=== PATIENT | male | born 1980 | race Caucasian/White ===

== ENCOUNTER 2020-08-01 08:40 | Emergency (ER) | payer OTHER, BC ==
[~2020-08-01] VITALS: Ht 177.8 cm; Wt 79.4 kg
--- OUTSIDE RECORDS SUMMARY | ~2020-08-01 | XMS | Encounter Summary ---
Demographics + + + | Address | [address] | | | [place] [address] | + + + | Home Phone | | + + + | Preferred Language | Unknown | + + + | Marital Status | | + + + | Moravian Affiliation | ADV | + + + | Race | White | + + + | Ethnic Group | Not or | + + + Author + + + | Author | [facility] | + + + | Organization | [facility] | + + + | Address | Unknown | + + + | Phone | Unavailable | + + + Support + + + + + | Name | Relationship | Address | Phone | + + + + + | Jigna Gutierrez | ECON | [address] | | | | | [place] | | | | | [address] | | + + + + + | Karmen All | ECON | [address] | | | | | [place] | | | | | [address] | | + + + + + Care Team Providers + +------+ + | Care Retail Field Supervisor Name | Role | Phone | + +------+ + | Juanito Edge MD | PCP | | + +------+ + Reason for Visit + +--------+ + | Reason | Onset | Comments | | | Date | | + +--------+ + | Telephone follow-up | 11/09/ | | | | 2012 | | + +--------+ + Encounter Details +--------+ + + + + | Date | Type | Department | Care Team | Description | +--------+ + + + + | 11/09/ | Telephone | [facility] | [facility] [address] | Telephone follow-up | | 2012 | IP | [facility] [address] | [facility] | | | | | [address] | [address] [place], [place] | | | | | Mailcode: [id number] | [id number] | | | | | [facility] | | | | | | [address] [place], | | | | | | [place] [address] | | | | | | [phone] | | | +--------+ + + + + Social History + + + +--------+------+ | Tobacco Use | Types | Packs/Day | Years | Date | | | | | Used | | + + + +--------+------+ | Current Every Day | Cigarettes | 1 | | | | Smoker | | | | | + + + +--------+------+ + +---+---+---+ | Smokeless Tobacco: | | | | | Never Used | | | | + +---+---+---+ + + +---------+ + | Alcohol Use | Drinks/Week | oz/Week | Comments | + + +---------+ + | Yes | 21 Cans of beer | 17.5 | Occasionally | + + +---------+ + + + + | Sex Assigned at | Date Recorded | | | | + + + | Not on file | | + + + documented as of this encounter Miscellaneous Notes Telephone Encounter - Cheyanne Villanueva - 11/09/2012 3:17 PM PSTTrauma Follow-up Telepho ne Call: Spoke with: Cherie 1. Overall, how are you (or your family member) doing? Pretty good 2. Pain issues? None, is carefully decreasing his oxy. He created a chart to document the decrease. Were prescriptions filled? y 3. Any home health or DME issues? n 4. Did you get our [facility] written instructions? y Did you understand them? y 5. Have you made a follow-up appointment? No.He feels like healing is on course. His m om has agreed to cover a visit with his primary. He has yet to schedule. Any difficulty with the appointments? n 6. Any new concerns? n documented in this en counter Plan of Treatment Not on filedocumented as of this encounter Visit Diagnoses Not on filedocumented in this encounter"
--- OUTSIDE RECORDS SUMMARY | ~2020-08-01 | XMS | Encounter Summary ---
Demographics + + + | Address | [address] | | | [place] [address] | + + + | Home Phone | | + + + | Preferred Language | Unknown | + + + | Marital Status | Single | + + + | Buddhism Affiliation | Unknown | + + + | Race | Unknown | + + + | Ethnic Group | Unknown | + + + Author + + + | Author | [facility] | | | and [place] | + + + | Organization | [facility] | | | and [place] | + + + | Address | Unknown | + + + | Phone | Unavailable | + + + Care Team Providers + +------+ + | Care Online Banking Specialist Name | Role | Phone | + +------+ + PCP | Unavailable | + +------+ + Encounter Details +--------+ + + + + | Date | Type | Department | Care Team | Description | +--------+ + + + + | 05/26/ | Hospital | [facility] | | | | 2009 | Encounter | [facility] | | | | | | CONV DEPT [address] | | | | | | [place], | | | | | | [place] [address] | | | | | | [phone] | | | +--------+ + + + + Social History + +-------+ +--------+------+ | Tobacco Use | Types | Packs/Day | Years | Date | | | | | Used | | + +-------+ +--------+------+ | Never Assessed | | | | | + +-------+ +--------+------+ + + + | Sex Assigned at | Date Recorded | | | | + + + | Not on file | | + + + documented as of this encounter Plan of Treatment Not on filedocumented as of this encounter Visit Diagnoses Not on filedocumented in this encounter"
--- OUTSIDE RECORDS SUMMARY | ~2020-08-01 | XMS | Encounter Summary ---
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 @ meatus:absent dumont in place with clear yellow urine Extremities: RUE: Right elbow abrasion, 3rd knuckle abrasion FROM, no pain to ROM, Full m otor and sensory LUE: wnl, FROM, no pain to ROM, Full motor and sensory RLE: Medial knee with abrasion, ecchymosis to anterior tibia without deformity, FROM, no pa in to ROM, Full motor and sensory right hip abrasion LLE: wnl, FROM, no pain to ROM, Full motor and sensory Rectal: Not done. Back: Tenderness:no Step-offs: absent Gross assessment: normal alignment Neuro: GCS:15 Eye: 4 Verbal: 5 Motor: 6 Cranial Nerves:Grossly intact II-XII Oriented to: person, place and time Motor:Grossly intact bilateral upper and lower extremities Sensation:Grossly intact bilateral upper and lower extremities DIAGNOSTIC IMAGING/TESTING: CT Head/Face Findings: -there is soft tissue swelling/hematoma overlying the right periorbital area with pre-septa l air density. The globe is unremarkable. -there is a right orbital roof fracture and right nasal bone fracture. The right orbital r allen fracture begins anteriorly along the superolateral roof and extends posteriorly to invol ve the posteromedial orbital wall, axial image 18 bone windows. -intracranial extent of fracture may be possible along with extra-axial hemorrhage near the left anterior temporal lobe best visualized on sagittal images marked by arrows -punctate hyperdensities underlie the soft tissues of the right frontoparietal area IMPRESSION: 1. Right orbital roof fracture likely extends intracranially with left anterior temporal lo be area subdural hemorrhage. There is also extensive periorbital soft tissue swelling and p reseptal air, although the right globe appears intact. Other testing: FAST scan negative LABORATORY VALUES: Results for orders placed during the hospital encounter of 11/01/12 GLUCOSE, PLASMA Component Value Range GLUCOSE, PLASMA (LAB) 135 (*) 60-99 mg/dL ETHANOL (ALCOHOL), BLOOD Component Value Range ETHANOL (ALCOHOL) 213 (*) <10 mg/dL COAGULOPATHY PANEL (INR,APTT,FIBRINOGEN) Component Value Range INR 1.08 0.90-1.20 INR APTT 25.3 (*) 26.0-36.0 seconds FIBRINOGEN LEVEL 261 200-450 mg/dL CBC Component Value Range WHITE CELL COUNT 10.5 4.4-11.0 K/cu mm RED CELL COUNT 4.37 (*) 4.50-5.90 M/cu mm HEMOGLOBIN 14.0 13.5-17.5 g/dL HEMATOCRIT 41.0 41.0-53.0 % MCV 93.9 80.0-96.0 fL MCHC 34.1 33.4-35.5 g/dL RDW 14.1 11.5-15.0 % PLATELET COUNT 176 150-400 K/cu mm ASSESSMENT: Mr. Gutierrez is a 32y/o male, transported to [facility] for trauma management[facility]: 1. Right orbital roof fracture 2. Right nasal bone fractue 3. Extra-axial hemorrhage near the left anterior temporal lobe 4. Punctate hyperdensities in soft tissue right frontoparietal 5. EtOH intoxication PLAN: ICU overnight Frequent Neuro checks No additional CT or no platelets needed Consult Neurosurgery Consult MF/Plastic surgery Dispo: Admit to intensive care, trauma team This plan was formulated and discussed with the above trauma surgery attending provider, bozena leigh trauma chief resident, and the rest of the trauma team regarding management of this patien t and their medical issues. It is subject to modification based on new data, final imaging results, or other clinical changes. EMMA ORELLANA MD [facility] EMERGENCY DEPARTMENT [address] [place] [address] Trauma Chief Addendum Mech: Intoxicated, tried to jump over 3' wall and fell face first on concrete. 10' LOC. In itially brought in to referring hospital by private conveyance. C-spine initially cleared a t referring hospital based on c-spine CT, however collar placed on arrival for precaution, g iven degree of intoxication and unreliable exam. Primary: intact, gcs 15 Normal vital signs Secondary: cephalohematoma and right periorbital edema with ecchymosis. Vision intact and EOMI bilat. Neck NT. Abrasion on right flank. Abrasions on knees. Dumont. FAST: neg CXR: normal, per my read Imaging: CT head, max/fac and c-spine from referring hospital reviewed with our radiologist s. No traumatic injury on c-spine imaging. Facial fractures on right. (Repeat f/u) [facility] Head CT: SDH at right anterior temporal lobe Injuries: Intoxicated 338 at referring; 213 at [facility] nearly 6 hours later. SDH in right anterior temporal lobe Nasal bone fractures Orbital fractures Cephalohematoma Abrasions to right hip and knees Plan; Admit to 7A Consult Neurosurgery (neuro exams; no CT planned now; no blood products/hypertonic saline i ndicated) Consult Max Fac for facial fractures Serial exams Tertiary exam when sober to assess spines Monitor vision in right eye Dr Triplett present and agrees with the above assessment and plan. JIA GLASS MD Tobacco Weigher, R5 documented in thi s encounter Consult Notes Ann Marie Valencia, VICKY - 11/03/2012 12:00 PM PSTFormatting of this note might be differe nt from the original. . NEUROSURGERY DAILY PROGRESS NOTE Author: ANN MARIE VALENCIA PA-C Attending Physician: Christiana Triplett MD HPI/Interval Update: Plan per primary team to d/c patient home today. Pt. Endorsing facial pain, mild ANGELO. Denies nausea. Alert, oriented following commands. Current Medications: Current Facility-Administered Medications Medication acetaminophen (aka TYLENOL) tablet 325-650 mg bacitracin-polymyxin B (aka POLYSPORIN) 500-10,000 unit/g packet 1 Packet bisacodyl (aka DULCOLAX) suppository 10 mg levETIRAcetam (aka KEPPRA) tablet 1,000 mg nicotine polacrilex (aka NICORETTE) gum 2 mg nystatin (aka MYCOSTATIN) cream ondansetron (aka ZOFRAN) injection 4 mg oxyCODONE (immediate release) (aka ROXICODONE) tablet 5-15 mg polyethylene glycol (aka MIRALAX) powder 17 g senna-docusate (aka SENOKOT S) 8.6-50 mg 1 Tab Physical Exam: BP 138/71 | Pulse 81 | Temp 36.5 C (97.7 F) | RR 18 | Wt 88 kg (194 lb 0.1 oz) | SpO2 1 00% Temp Av.9 C (98.4 F) Min: 36.5 C (97.7 F) Max: 37.2 C (99 F) Pulse Av.4 Min: 49 Max: 81 Systolic (24hrs), Av mmHg, Min:120 mmHg, Max:151 mmHg Diastolic (24hrs), Av mmHg, Min:70 mmHg, Max:98 mmHg Resp Av.5 Min: 12 Max: 20 SpO2 Av.3 % Min: 96 % Max: 100 % Intake/Output Summary (Last 24 hours) at 11/03/12 1201 Last data filed at 11/03/12 0900 Gross per 24 hour Intake 1095 ml Output 2250 ml Net -1155 ml Lab Results Component Value Date/Time NA 141 11/03/2012 5:16 AM K 3.9 11/03/2012 5:16 AM CR 0.90 11/03/2012 5:16 AM HCT 39.5* 11/03/2012 5:15 AM WBC 7.3 11/03/2012 5:15 AM PLT 145* 11/03/2012 5:15 AM Gen: 32 y/o Male NAD Neuro: A + O x 3,Speech appropriate, PERRL, EOMI, face symmetric, tongue midline, Motor 5/5 Sensation intact to light touch Assessment and Plan: Pa Gutierrez is a 32 y.o. male HD# 2 with facial fractures, right orbital roof fracture, and t race right temporal extra-axial hematoma and pneumocephalus, - Care per Primary Team. - Recommend Keppra x 7 days for seizure prophylaxis, given temporal involvement. No outpati ent follow up in Neurosurgery Clinic indicated. -Neurosurgery Service will sign off. VICKY FISHER-Wes [facility] [id number] [place] [id number] Dima Magana MD,DMD - 11/02/2012 1:22 AM PSTFormatting of this note might be different from the o riginal. BUTTON TACKER Trauma Midface Evaluation 32 y.o. male, Pa Gutierrez Resident: ZEE MAJOR DMD Attending: Wade Castaneda BDS, MD Referring: Jesus Alberto Anders MD [facility] [address] [place] [address] Requested Treatment: Eval of facial fractures CC/ Goals: None Days since Injury: 6 hours. Injury Mechanism/ Details: Fall from 3 foot wall onto face LOC?: + LOC, GCS 14 on scene. 1 5 at Hospital. Malocclusion/ Numbness Subjectively: None reported Diplopia/ Visual Changes Subjectively: Minimal visual complaint, but attributed to EtOH Pain: 02/24 PMH: No past medical history on file. MEDS: Current Medication List Not on File ALL: Allergies Allergen Reactions Hydrocodone-Acetaminophen Itching PSH: No past surgical history on file. SOC: History Smoking status Current Everyday Smoker Smokeless tobacco Never Used History Alcohol Use Yes Occasionally History Drug Use Yes Marijuana FAM: Family History Deferred ROS: CV: denies Pulm: denies GI: denies Liver: denies Endo: denies : denies All other ROS negative EXAM: Vital Signs: BP 107/61 | Pulse 78 | Temp 36.8 C (98.2 F) | RR 13 | Wt 88 kg (194 lb 0.1 oz) | SpO2 96% General: AAOx3, NAD. Laying in bed with C-collar in place. Responsive to questions and comm ands. Skull Base/ Neck: No battles sign. No lacs. Soft Tissues Head/ Face/ Neck: R periorbital ecchymosis, Able to open lid on own power. Abr asion of approx 3cm diameter of R lateral brow. No lacerations. Swelling of R Ear with tende rness to palpation. No crepitus appreciated. Extraoral Deformity/ Displacement/ Step-off: No deformity. No steps of Orbit or mandible. M andible stable to manipulation. Nasal bone stable to palpation, No crepitus. No nasal bleedi ng. No septal hematoma. Pupils: PERRL Sclera: White and quiet Ocular Motility: Normal Ocular ROM. No entrapment appreciated. Ocular Position A-P (ex/enophthalmos): Globes in relative position to eachother. Ocular Position Sup-Inf: Equal position Visual Acuity: Able to read text at 12 inches. Gross vision intact. Vision changes since l ast exam: None reported. Diplopia: None Mandibular ROM/ LADONNA: FROM. LADONNA 45mm Oral/ Pharynx: PP clear. Uvula midline. No lacerations appreciated. DentoAlveolar: No fractured/ luxated/missing teeth. Occlusion/ Malocclusion: Stable and reproducible. Intraoral Skeletal Displacement/ Stability/ Mobility: Max and mandible stable to manipulati on. Trigeminal Nerve: Intact bilaterally. Facial Nerve: Intact bilaterally Vestibulocochlear Nerve: Intact bilaterally. Radiographic Imaging Type(s): CT Max face. Radiographic Findings: R Non displaced Superolateral orbit fracture extending into frontal bone. R Superior orbital wall fracture with 3mm bone displacement into cranium. R non displa david nasal bone fracture. Non displaced posterior frontal sinus wall fracture with associated pneumocephalus. ASSESSMENT: ASA Status: I Diagnoses: Pa Gutierrez is a 32 y.o. male with non displaced facial fractures of the R orbital rim, posterior frontal sinus and nasal bones with facial abrasion. Vision is intact and glob e position is appropriate. No indication for surgery at this time. Indications for Surgery: None at this time. PLAN: Plan/ Procedure: Follow peripherally for any new developments of visual symptoms that may r equire treatment. Will see if neuro suggests repair for posterior sinus wall, and if Optho w ill suggest any repair to orbital fractures. REC: Bacitracin to facial abrasion for 5 days. Sunscreen for 1 year avoid excessive sun exposure decrease scar formation. Evan Major [facility] R1 [id number] Nataly Cramer MD - 0 11/02/2012 12:42 AM PST NEUROLOGICAL SURGERY: TRAUMATIC BRAIN INJURY CONSULTATION Author: ELOINA KILGORE MD Date of Service: 11/02/2012 Attending Provider: Nataly Dalton MD HPI: Pa Gutierrez is a 32 year old gentleman who was reportedly running from police when he jumped f rom a 3 foot retaining wall and hit the ground face first with subsequent LOC for approximat rukhsana 10 minutes. Mr. Gutierrez doesn't recall any of this. He says he was drinking with his friend s at a [employer] shop and stepped outside to smoke, then awoke in the hospital strapped to a ed. He was initially evaluated in [place], where a head CT showed facial fractures and po ssible right frontal contusion, versus artifact. He was subsequently transferred to [facility] ere a repeat head CT was concerning for right temporal subdural hematoma with pneumocephalus . Neurosurgery was subsequently consulted for evaluation. Currently, Mr. Gutierrez says his headaches are improving, and his nausea is mild. He wears glass es at baseline, which he doesn't have now, but doesn't notice any changes in vision. He zeb es any tinnitus, dizziness, neck/back pain, radicular pain, paresthesias, or weakness. Allergies: Vicodin - causes pruritus PMHx: None Surgical Hx: None Medications: None Social Hx: + EtOH - approx 3 beers/day < 1ppd tobacco use intermittently since his teenage years, has been consistent for 1.5 year s + Marijuana (states he uses this for chronic nausea/stomach pain, which he's had for 2.5 ye ars) Denies other drug use Lives with his girlfriend in [place] Unemployed (fired from [email or web address] 10 years ago) PE: BP 107/61 | Pulse 78 | Temp 36.8 C (98.2 F) | RR 13 | Wt 88 kg (194 lb 0.1 oz) | SpO2 9 6% HEENT: C-Collar in place Right periorbital ecchymosis, right frontal abrasion NEUROLOGICAL: GCS 15 (M6,V5,E4) A&O to name, date, location, and situation; following commands, answering appropriately 2mm PERRL, EOMI, Conjugate gaze, no nystagmus, no ptosis Sensation in tact in V1-V3 distributions bilaterally; Face motor symmetric - intermittent asymetric smile (decreased on the right); eyes close fu lly Hearing intact to rub Shrugs shoulders bilaterally Tongue midline No pronator drift No moekvs-dn-fwop dysmetria or ataxia 5/5 strength bilateral UE & LE Sensation intact in all extremities IMAGING: Head CT: Stable, if not improved, extra-axial hemorrhage and pneumocephalus Head CT (11/01/2012):Right orbital roof fracture with small right temporal extra-axial hyper density concerning for small hematoma; trace pneumocephalus CT Max/Face (11/01/2012): LABS: CBC with diff last 72 hours (or 3 results) Recent Labs Basename 11/01/12 2318 WBC 10.5 HB 14.0 HCT 41.0 PLT 176 NEUTROPERC -- BANDPCT -- LYMPHPERC -- MONOPERC -- BASOPERC -- EOSPERC -- Chemistries: Last 72 Hours (or 3 results): Recent Labs Basename 11/01/12 2318 NA -- K -- CL -- BICARB -- BUN -- CR -- GLU 135* CA -- MG -- PO4 -- INR 1.08 PTT 25.3 Fibrinogen 261 ASSESSMENT/PLAN: Pa Gutierrez is a 32 year old gentleman who fell from a 3-foot retaining wall tonight with subs equent facial fractures, right orbital roof fracture, and trace right temporal extra-axial h ematoma and pneumocephalus, which is less prominent on repeat CT. He feels his headaches ar e improving, and he has no changes in vision. He is GCS 15 and neurologically intact. Facia l Plastics and Ophthalmology have been consulted. - Admit to 7A, Trauma ICU - q1 hour neuro checks x 24hrs. - No additional CT scans needed unless pt neurologically declines - Keppra x 7 days for seizure prophylaxis, given temporal involvement TBI RECOMMENDATIONS: Maintain SBP > 100 mmHg Maintain pO2 > 100mmHg, SpO2 > 90% Maintain pCO2 35-40mmHg Goal Na 135-145 Maintain platelets > 75,000 Maintain INR <= 1.4 Maintain Temperature 36.0-38.3 degrees Celsius Maintain Glucose 80-180 mg/dL Maintain Hgb >= 8 gm/dl Maintain cervical spine precautions Keep HOB > 30 degrees ELOINA KILGORE MD Neurological Surgery, PGY-2 I personally interviewed the patient, performed the pertinent parts of the physical examina tion and personally formulated the plan with the resident. I agree with the residents docum entation and have documented any additions or exceptions. documented in this en counter ED Notes Dakota, Faculty - 11/15/2012 8:48 AM PSTElectronically signed by Faculty Other at 3 8:48 AM Marianne Banegas MD - 11/01/2012 11:36 PM PSTFormatting of this note might be di fferent from the original. ED Shared Provider Note, co-authored by Dr. Merino and JERILYN ALCARAZ MD: HPI Trauma history as by myself and trauma team and recorded by trauma scribe during trauma christina luation. Mr. Gutierrez is a 32y/o, who presents as a level 3 trauma to [facility] for evaluation and management. Transfer from [facility] regarding facial fractures and . Was drinking EtOH, jumped from a 3 foot retaining wall. Was unconscious for 10minutes. Some hypotension in route with life flight, responded to IVF bolus. Mechanism: fall, tried to jump off a 3 foot wall hit face first onto concrete The patient complains of facial pain LOC: YES 10minutes GCS on scene 14 Time of day: 1750 PRIOR TO ADMISSION MEDS: none ALLERGIES: vicodan PAST MEDICAL HISTORY: none PAST SURGICAL HISTORY: cholecystectomy SOCIAL HISTORY: +EtOH FAMILY HISTORY: Non contributory Patient Active Problem List Diagnoses Date Noted Fall 11/01/2012 Trauma 11/01/2012 Medications None Allergies Allergen Reactions Hydrocodone-Acetaminophen Itching ROS A 10 point review of systems was performed and is otherwise negative except as noted in HPI . I have reviewed the medications, allergies, past medical history, social history, and famil y history. ED Triage Vitals BP Temp Pulse Resp SpO2 11/01/12 2315 11/01/12 2315 11/01/120 11/01/12231911/01/122314 113/71 mmHg 36.5 C 81 18 96 % Physical Exam Trauma exam as performed and stated by me and recorded by trauma scribe during trauma evalu ation. Primary Survey: Intact, documented below Vitals: HR: 75, BP: 113/71, O2 sat: 98%, RR:16, Temp:36.8 Skin: Appearance:Warm & Well perfused HEENT: Pupil Size:2mm bilaterally, sluggish but equal Eyes: normal EOMs: normal Ears: normal TM: Clear to inspection bilaterally Midface:normal Nose: normal Mouth: normal Lacerations/abrasions: right brow with abrasion, Contusions/Hematomas: ecchymosis right eyelid Pharynx: normal Juares's sx: absent Neck: Trachea Midline? yes Tenderness: absent. JVD? absent Crepitance? absent Chest Wall: Contusions: absent. Tenderness: absent Flail segment?:absent SQ emphysema?: absent. Respiratory: Breath Sounds: present and equal bilaterally with normal effort. Cardiovascular: Heart Sounds: regular rate and rhythm without murmur Pulses:symmetric and equal bilateral upper & lower extremities. Abdomen: Contusions: absent Lacerations/abrasions: none Bowel Sounds: normal Distended: no Tender: no Soft: yes Pelvis: Stable to compression: yes : Blood @ meatus:absent dumont in place with clear yellow urine Extremities: RUE: Right elbow abrasion, 3rd knuckle abrasion FROM, no pain to ROM, Full mot or and sensory LUE: wnl, FROM, no pain to ROM, Full motor and sensory RLE: Medial knee with abrasion, ecchymosis to anterior tibia without deformity, FROM, no pa in to ROM, Full motor and sensory right hip abrasion LLE: wnl, FROM, no pain to ROM, Full motor and sensory Rectal: Blood absent Back: Tenderness:no Step-offs: absent Gross assessment: normal alignment Neuro: GCS:15 Eye: 4 Verbal: 5 Motor: 6 Cranial Nerves:Grossly intact II-XII Oriented to: person, place and time Motor:Grossly intact bilateral upper and lower extremities Sensation:Grossly intact bilateral upper and lower extremities ED COURSE AND MEDICAL DECISION MAKIN32 year old male with fall from 3 foot retaining wall. Concern for ICH. Known fractures of orbit and nasal bone. Though outside CT c spine reported negative for c spine injury patient placed in collar on arrival as still intoxicated and will not be cleared until regan. Will consult OMFS for nasal bone and orbit fracuture and evaluate IOP of affected eye. Will perf orm chest x ray and fast to rule out pnx, rib fractures, and abdominal free fluid suggestive of hemorrhage. Procedure: FAST US, Limited abdominal and limited cardiac US INDICATION: Blunt Trauma FINDINGS: RUQ- Pleural space: Free fluid: no Subphrenic space: Free fluid: no Hepatorenal space: Free fluid: no Inferior pole: Free fluid: no LUQ- Pleural space: Free fluid: no Subphrenic space: Free fluid: no Splenoorenal space: Free fluid: no Inferior pole: Free fluid: no Pericardial space: Free fluid: no Suprapubic space: Free fluid: no IMPRESSION: negative FAST exam ATTENDING: Dr. Merino present during procedure Cardiac images stored: yes Abdominal images stored: Yes Tonometer measurements of right eye: 4 X < 20 CT Head/Face Findings: -there is soft tissue swelling/hematoma overlying the right periorbital area with pre-septa l air density. The globe is unremarkable. -there is a right orbital roof fracture and right nasal bone fracture. The right orbital ro of fracture begins anteriorly along the superolateral roof and extends posteriorly to involv e the posteromedial orbital wall, axial image 18 bone windows. -intracranial extent of fracture may be possible along with extra-axial hemorrhage near the left anterior temporal lobe best visualized on sagittal images marked by arrows -punctate hyperdensities underlie the soft tissues of the right frontoparietal area IMPRESSION: 1. Right orbital roof fracture likely extends intracranially with left anterior temporal lo be area subdural hemorrhage. There is also extensive periorbital soft tissue swelling and pr eseptal air, although the right globe appears intact. Chest x ray: clear lungs. Normal cardiac outline. No pnx. No fx. LABORATORY VALUES: Results for orders placed during the hospital encounter of 11/01/12 GLUCOSE, PLASMA Component Value Range GLUCOSE, PLASMA (LAB) 135 (*) 60-99 mg/dL ETHANOL (ALCOHOL), BLOOD Component Value Range ETHANOL (ALCOHOL) 213 (*) <10 mg/dL COAGULOPATHY PANEL (INR,APTT,FIBRINOGEN) Component Value Range INR 1.08 0.90-1.20 INR APTT 25.3 (*) 26.0-36.0 seconds FIBRINOGEN LEVEL 261 200-450 mg/dL CBC Component Value Range WHITE CELL COUNT 10.5 4.4-11.0 K/cu mm RED CELL COUNT 4.37 (*) 4.50-5.90 M/cu mm HEMOGLOBIN 14.0 13.5-17.5 g/dL HEMATOCRIT 41.0 41.0-53.0 % MCV 93.9 80.0-96.0 fL MCHC 34.1 33.4-35.5 g/dL RDW 14.1 11.5-15.0 % PLATELET COUNT 176 150-400 K/cu mm ED Medication Administration from 11/01/2012 2303 to 11/01/2012 2358 None IMPRESSION: [id number] Fall [id number] Trauma Right orbital roof fracture Right nasal bone fracture Extra-axial hemorrhage near the left anterior temporal lobe Punctate hyperdensities in soft tissue right frontoparietal EtOH intoxication PLAN, DISPOSITION AND FOLLOW-UP: Admit to TICU Neurosurgery consulted OMFS consulted New Prescriptions No medications on file MARIANNE MERINO MD, Faculty Note: I saw and evaluated the patient and discussed the diagnosis and management with the residen t. I performed and confirmed the reina portions of the service. I have reviewed and agree wit h the documentation in the provider note. ED Critical Care Time: 30 Minutes spent on direct patient care, interpretation of diagnos tics and consultation with other providers, exclusive of separately billable procedures. Procedures I was present for and supervised the reina portions of the following procedures: FAST abdomen, negative Note: As above, transfer from [place], orbital and skill facial bone fracture with small SDH, stable here, IOP is 18, admit to TICU [facility] Roy MSW - 11/01/2012 11:08 PM PSTTrauma Transfer Family Notification Pt's , Karmen: [phone], called to leave her number and asked for a phone call from an MD with an update. I advised her that the pt was just arriving, and described the ED eval uation process. I will call the pt's back with contact information for the floor when known. documented i n this encounter Miscellaneous Notes Scan - Other, Faculty - 11/08/2012 8:49 AM PSTElectronically signed by Faculty Other at 8:49 AM PSTScan - Other, Faculty - 11/08/2012 8:49 AM PST can - Other, Faculty - 11/08/2012 8:49 AM PSTElec tronically signed by Faculty Other at 11/08/2012 8:49 AM PSTScan - Other, Faculty - 013 8:49 AM PST can - Othe r, Faculty - 11/04/2012 11:48 AM PST 11: 49 AM PSTScan - Other, Faculty - 11/04/2012 11:48 AM PST can - Other, Faculty - 11/04/2012 11:48 AM PSTElectronically s igned by Faculty Other at 11/04/2012 11:49 AM PSTEvaluation - Petty Rowan RN - 013 1:22 PM PSTNursing Discharge Note Discharge Date: 11/03/2012 Additional Discharge Information: DC teaching done with patient's s.o. At bedside. Patient states understanding. DC paperwork , scripts and follow up appointment sent home with patient. DC home Discharge Nurse: Petty Rowan lan of Care - Aruna Cardoso EPIC PRELUDE ANALYST - 11/03/2012 12:57 PM PSTProblem: Goals & Interventions Intervention: Screening and Brief Intervention (SBI) TRAUMA SCREENING & BRIEF INTERVENTION: Summary of event(s): Pt was drinking with [place] the [place] He fell whil e attempting to hop over a small retaining wall. Blood Alcohol Level: 213 Positive UDS for: n/a How many times in an average week (or month) do you drink alcohol or use drugs? Every oth er day When you do drink or use, what do you consume? Beer How much of each do you consume? Anywhere between 2-6 beers CAGE Administered: Yes CAGE (4 Questions): Have you thought about cutting back? No Do you get annoyed by friends/family suggesting you cut back/quit? No Do you ever feel guilty about your use? No Do you ever use in the a.m. to get the day started? No If applicable, does the patient express insight into how drinking alcohol or drug use contr ibuted to this injury or condition? Unsure, the pt does not remember the event. He is not s ure whether he drank too much or if his memory is gone due to his head injury. Educational Material & Treatment/Support resources given: Yes Patient ready to seek help for substance abuse: No. The pt does not feel his alcohol use i s impacting his life negatively. JEANNINE Estrada Trauma & Orthopedic Social Services Designee Pager [phone] lan of Care - Fan Arnold - 11/03/2012 7:22 AM PSTProblem: Case Management Goals Goal: Discharge Needs Met Outcome: Goal not met Pt now on arnold. Anticipate PT/OT clearance then home discharge. Following for needs. UPDATE: Will DC after lunch if he tolerates well. Family to transport home. Fan Arnold RN, BSN Instructor Painting - Trauma Program [facility] [employer] [address] [address] [email or web address] - Gladys Orantes RN - 11/03/2012 5:01 AM PSTProblem: Pain, Acute (Adult, Obstetrics) Goal: Identify Signs and Symptoms and Related Risk Factors Goals:Pt's pain will be rated at a 4/10 or less for duration of hospital stay. Interventions: 1. Slow deep breathing will be encouraged. 2. Repositioning q 2 hours and prn. 3. Administer pain medications as needed. 4. Distraction techniques such as listening to music, watching tv, encouraged. Interventions that worked/didn't work:Pt able to reposition independently, pain meds prn po , watched tv. My recommendations forward:Continue with po pain meds when requested. Patient Stability:Moderately Stable lan of Care - Divina Orantes RN - 11/02/2012 10:59 PM PSTProblem: Pain, Acute (Adult, Obstetrics) Goal: Identify Signs and Symptoms and Related Risk Factors Goals:Pt's pain will be rated at a 4/10 or less for duration of hospital stay. Interventions: 1. Slow deep breathing will be encouraged. 2. Repositioning q 2 hours and prn. 3. Administer pain medications as needed. 4. Distraction techniques such as listening to music, watching tv, encouraged. andoff - Lloyd Orantes RN - 11/02/2012 10:58 PM PSTNursing Handoff Report Primary focus of stay: Pt tripped attempting to jump over a fence hitting his head on concr ete with a reported loss of consciousness for 10 minutes resulting in multiple, non-displace d, facial fractures along with a potential SDH, which subsequently was not appreciated on e repeat scan in our facility. Pertinent physical findings: Non-displaced facial fractures, frontal contusion with abrasio n, small laceration sutured by oral-maxilliofacial, other abrasions on skin include hip and bilateral knees. Prefers BP on RUE d/t LAC PIV. No reports of dizziness or nausea overnigh t. Orders to follow up on: Last pain assessment/reassessment: Ongoing. 10 mg oxy works well for pain. Psych/social issues: none, pt calm, cooperative Last patient visit (i.e. Falls/Activity/Comfort/Environment/Toileting/Skin): Falls - non-sk id socks, adjusted lighting, pt calls appropriately; pt repositions independently in bed. Anticipated or pending procedures: PT/OT clearance then DC lan of Care - Ana Hernandez CCC-STUDENT AMBASSADOR - 11/02/2012 4:42 PM PSTSpeech Language Pathology Cognitive Language Evaluation Medical Course: 32 year old male, admitted 11/01, s/p fall from wall, with non-displaced posterior table fro ntal sinus fx, Right Supraorbital rim/wall fractures, and R nasal bone fx. No surgery indica claudia. Previous Medical History: No past medical history on file. Prior Level of Function:independent, currently unemployed since no longer working at [employer], lives with girlfriend Pain: denied Orders received for cognitive evaluation. Assessment: Orientation: self, [facility], Nov 02, 2011, fall Repetition of phrases: Up to 22 syllables without cues Immediate recall: 4/4 Delayed recall 4/4 without cues Answering simple yes/no questions: 100% Answering complex yes/no questions: 100% Following commands: 3/3 3 step commands without cues Verbal reasoning: Problem solving: Appropriate for current situation Thought organization: appropriate Visual perceptual skills: Denied changes Education: SEE MULTIDISCIPLINARY EDUCATIONAL RECORD FOR DETAILED PLAN; focus this session to patient includes TBI. Education Outcome: Patient able to demonstrate . Impression: Patient without acute cognitive rehab needs Recommendations: Out Patient follow up with further concerns Ana Hernandez M.S., CCC-STUDENT AMBASSADOR #[id number] Speech Language Pathologist [facility] ransfer Note - Kristopher Fay MD - 11/02/2012 2:06 PM PSTI agree with the decision to transfer to the ICU . KRISTOPHER DIAMOND MD ransfer Note - Pamela De Dios MD - 11/02/2012 2:06 PM PST Trauma / Surgical Critical Care Service Trauma Transfer Note Name: PA GUTIERREZ Date: 11/02/2012 Time: 2:06 PM Author: PAMELA REID MD Attending Physician: Christiana Triplett MD HPI: 32 y.o. y/o male admitted on 11/01/2012 11:03 PM and hospital day 2 with the following injuries, diagnoses and significant PMH: Patient Active Problem List Diagnoses Fall Trauma Current Issues / Plans / Follow up needed: Small SDH, stable on CT x 2, evaluated by neurosurgery, non operative. Speech cognitive evaluation pending. Facial fractures. Evaluated by OMFS. Non operative. Nausea - IV Zofran, and phenergan. Stable. Spine Evaluation: C-Spine Clear, T-Spine Clear and L-Spine Clear Operative Procedures/Dates performed or planned: Past Surgical History None during this admission Current Lines/Drains/Airways: PIV x 2 Current Infectious Issues: None Pending cultures or labs to be checked: None. VTE Prophylaxis: None, ambulating. Last VTE Surveillance U/S duplex (date): None studies to date. Weight Bearing Status: No restrictions. Therapies Ordered: STUDENT AMBASSADOR - cognitive eval Consulting Services/ Issues: Neurosurgery: Non operative SDH. OMFS - Non operative facial fractures. Other: Trauma tertiary survey completed: Yes Patient's Medical Reconciliation Completed: Yes Transfer orders completed and they are arnold appropriate: Yes Sign out communicated to the Trauma ARNOLD Team: Yes Trauma ICU Team Pager (24hrs/day): [phone] can - Palak Duncan - 11/02/2012 10:04 AM PST Plan of Care - Minda Johnson RN - 11/02/2012 7:12 AM PSTProblem: Case Management Goals Goal: Discharge Needs Met Initial Case Management Note Reason for admission: Pt admitted to ICU with small CHI and facial fxs s/p failed jump o manan retaining wall Pre-admission living situation: Lives in [place] Pre-admission functional status: Independent Family/support system: Mother Insurance/funding in place: TBD Anticipated discharge needs: None anticipated. Will follow. Roxy Johnson RN BSN Trauma Instructor Painting Pager [phone] andoff - Noris Holloway RN - 11/02/2012 5:58 AM PSTNursing Handoff Report Primary focus of stay: Pt tripped attempting to jump over a fence hitting his head on concr ete with a reported loss of consciousness for 10 minutes resulting in multiple, non-displace d, facial fractures along with a potential SDH, which subsequently was not appreciated on th e repeat scan in our facility. Pertinent physical findings: Non-displaced facial fractures, frontal contusion with abrasio n, small laceration sutured by oral-maxilliofacial, other abrasions on skin include hip and bilateral knees. Orders to follow up on: C-spine, t-spine, and l-spine clearance and potentially another med ication for nausea as this presently is his chief complaint Last pain assessment/reassessment: 0600, pt is pain free, however has a great deal of nause a Psych/social issues: none, pt calm, cooperative Last patient visit (i.e. Falls/Activity/Comfort/Environment/Toileting/Skin): Falls, pt at r isk, hit is head and lost consciousness purportedly for 10 minutes post incident. Anticipated or pending procedures: D/C dumont catheter, advance activity once spines are sola ared, potentially discharge home. valuation - Edmund Holloway RN - 11/02/2012 5:51 AM PSTProblem: General Plan of Care (Adult) Intervention: NPEOC Critical Goals:1. No unnoticed neurological decline during shift 2. Mitigate pain related to accident 3. No skin deterioration during hospital course Interventions:1. Frequent / hourly neurological checks to assure no decline is occurring 2. Administer PRN medications to alleviate any break through pain 3. Frequent turns and aggressive skin care Interventions that worked/didn't work:The patient had no neurological decline, was free fro m pain and experienced no skin deterioration during this shift. He did however develop naus ea for which he had two episodes of emesis and remains somewhat nauseated post medication ad ministration. My recommendations forward: Facilitate clearing c-spine and attempt to advance activity in an attempt to shorten the patients hospital stay. Patient Stability:Moderately Stable lan of Care - Noris Holloway RN - 11/02/2012 2:39 AM PSTProblem: General Plan of Care (Adult) Intervention: NPEOC Critical Goals:1. No unnoticed neurological decline during shift 2. Mitigate pain related to accident 3. No skin deterioration during hospital course Interventions:1. Frequent / hourly neurological checks to assure no decline is occurring 2. Administer PRN medications to alleviate any break through pain 3. Frequent turns and aggressive skin care D Teaching Notes - Marianne Maya MD - 11/02/2012 1:03 AM PSTPlease see shared provider note Electronically neelam d by Marianne Merino MD at 11/02/2012 1:03 AM PST[facility] - 3 10:53 PM [id number], TB [id number] no changes, eta 12Electronically signed by Zee pineda 11/01/2012 10:[address] [facility] - 11/01/2012 7:[address] [facility] Joon - 11/01/2012 7:31 PM PSTgrp 18, ED reg and ED chargemaster analyst notifiedElectronically sign ed by Joon Andrews at 11/01/2012 7:[address] [facility] Joon - 11/01/2012 7:31 PM PST7:28 PM 11/01/2012 Dr. Chago Mckeon, PT: Pa Gutierrez : 1980 DX: Trauma 7:29 PM 11/01/2012 connected MD's, tried to jump retaining wall and fell 3 ft onto head, positive loss of con, hr 70. bp 130/80, knot on rt frontal, periorbital echymosis, facial bone fx's documented in this encounter Plan of Treatment Not on filedocumented as of this encounter Procedures + +--------+ + + + | Procedure Name | Priori | Date/Time | Associated Diagnosis | Comments | | | ty | | | | + +--------+ + + + | CAPILLARY BLOOD | Routin | 11/03/2012 | | Results for this | | GLUCOSE (NO CHG), | e | 7:26 AM | | procedure are in the | | POC | | PST | | results section. | + +--------+ + + + | INR | Urgent | 11/03/2012 | | Results for this | | | | 5:16 AM | | procedure are in the | | | | PST | | results section. | + +--------+ + + + | RENAL FUNCTION SET | Urgent | 11/03/2012 | | Results for this | | (NA,K,CL,CO2,BUN,CRE | | 5:16 AM | | procedure are in the | | AT,GLUC,CA,PHOS,ALB | | PST | | results section. | | ) | | | | | + +--------+ + + + | MAGNESIUM, PLASMA | Urgent | 11/03/2012 | | Results for this | | | | 5:16 AM | | procedure are in the | | | | PST | | results section. | + +--------+ + + + | CBC ONLY | Urgent | 11/03/2012 | | Results for this | | | | 5:15 AM | | procedure are in the | | | | PST | | results section. | + +--------+ + + + | CBC ONLY | Urgent | 11/03/2012 | | Results for this | | | | 5:15 AM | | procedure are in the | | | | PST | | results section. | + +--------+ + + + | CAPILLARY BLOOD | Routin | 11/03/2012 | | Results for this | | GLUCOSE (NO CHG), | e | 12:39 AM | | procedure are in the | | POC | | PST | | results section. | + +--------+ + + + | CBC ONLY | Urgent | 11/02/2012 | | Results for this | | | | 12:33 AM | | procedure are in the | | | | PST | | results section. | + +--------+ + + + | INR | Urgent | 11/02/2012 | | Results for this | | | | 12:33 AM | | procedure are in the | | | | PST | | results section. | + +--------+ + + + | RENAL FUNCTION SET | Urgent | 11/02/2012 | | Results for this | | (NA,K,CL,CO2,BUN,CRE | | 12:33 AM | | procedure are in the | | AT,GLUC,CA,PHOS,ALB | | PST | | results section. | | ) | | | | | + +--------+ + + + | CBC ONLY | Urgent | 11/02/2012 | | Results for this | | | | 12:33 AM | | procedure are in the | | | | PST | | results section. | + +--------+ + + + | MAGNESIUM, PLASMA | Urgent | 11/02/2012 | | Results for this | | | | 12:33 AM | | procedure are in the | | | | PST | | results section. | + +--------+ + + + | PRODUCT - PLATELET | Routin | 11/02/2012 | | Results for this | | PHERESIS | e | 12:12 AM | | procedure are in the | | LEUKOREDUCED | | PST | | results section. | + +--------+ + + + | CT HEAD WO CONTRAST | Urgent | 11/01/2012 | | Results for this | | | | 11:57 PM | | procedure are in the | | | | PST | | results section. | + +--------+ + + + | X-RAY PORTABLE CHEST | Urgent | 11/01/2012 | | Results for this | | 1 VIEW | | 11:48 PM | | procedure are in the | | | | PST | | results section. | + +--------+ + + + | CBC ONLY | Urgent | 11/01/2012 | | Results for this | | | | 11:18 PM | | procedure are in the | | | | PST | | results section. | + +--------+ + + + | CBC ONLY | Urgent | 11/01/2012 | | Results for this | | | | 11:18 PM | | procedure are in the | | | | PST | | results section. | + +--------+ + + + | COAGULOPATHY PANEL | Urgent | 11/01/2012 | | Results for this | | (INR,APTT,FIBRINOGEN | | 11:18 PM | | procedure are in the | | ) | | PST | | results section. | + +--------+ + + + | ANTIBODY SCREEN | Urgent | 11/01/2012 | | Results for this | | | | 11:18 PM | | procedure are in the | | | | PST | | results section. | + +--------+ + + + | TYPE AND SCREEN | Urgent | 11/01/2012 | | Results for this | | | | 11:18 PM | | procedure are in the | | | | PST | | results section. | + +--------+ + + + | ABO & RH TYPE | Urgent | 11/01/2012 | | Results for this | | | | 11:18 PM | | procedure are in the | | | | PST | | results section. | + +--------+ + + + | ETHANOL (ALCOHOL), | Urgent | 11/01/2012 | | Results for this | | BLOOD | | 11:18 PM | | procedure are in the | | | | PST | | results section. | + +--------+ + + + | GLUCOSE, PLASMA | Urgent | 11/01/2012 | | Results for this | | | | 11:18 PM | | procedure are in the | | | | PST | | results section. | + +--------+ + + + documented in this encounter Results CAPILLARY BLOOD GLUCOSE (NO CHG), POC (11/03/2012 7:26 AM PST) + +-------+ + + + | Component | Value | Ref Range | Performed | Pathologist | | | | | At | Signature | + +-------+ + + + | BLOOD | 89 | 60 - 99 mg/dL | [facility] | | | GLUCOSE, | | | [facility] | | | POC | | | [facility] | | | | | | OF CARE | | | | | | TESTS | | + +-------+ + + + + + | Specimen | + + | | + + + + + + + | Performing | Address | City/State/Zipcode | Phone Number | | Organization | | | | + + + + + | [facility] | [address] | [place], [place] | | | [facility] OF CARE | [address] | [address] | | | TESTS | | | | + + + + + RENAL FUNCTION SET (NA,K,CL,CO2,BUN,CREAT,GLUC,CA,PHOS,ALB ) (11/03/2012 5:16 AM PST) + +---------+ + + + | Component | Value | Ref Range | Performed | Pathologist | | | | | At | Signature | + +---------+ + + + | GLUCOSE, | 88 | 60 - 99 mg/dL | [facility] | | | PLASMA | | | LABORATORY | | | (LAB) | | | SERVICES, | | | | | | CORE | | + +---------+ + + + | BUN, PLASMA | 8 | 6 - 20 mg/dL | [facility] | | | (LAB) | | | LABORATORY | | | | | | SERVICES, | | | | | | CORE | | + +---------+ + + + | CREATININE | 0.90 | 0.70 - 1.30 | [facility] | | | PLASMA | | mg/dL | LABORATORY | | | (LAB) | | | SERVICES, | | | | | | CORE | | + +---------+ + + + | SODIUM, | 141 | 136 - 145 | [facility] | | | PLASMA | | mmol/L | LABORATORY | | | (LAB) | | | SERVICES, | | | | | | CORE | | + +---------+ + + + | POTASSIUM, | 3.9 | 3.4 - 5.0 | [facility] | | | PLASMA | | mmol/L | LABORATORY | | | (LAB) | | | SERVICES, | | | | | | CORE | | + +---------+ + + + | CHLORIDE, | 106 | 97 - 108 mmol/L | [facility] | | | PLASMA | | | LABORATORY | | | (LAB) | | | SERVICES, | | | | | | CORE | | + +---------+ + + + | TOTAL CO2, | 28 | 21 - 32 mmol/L | [facility] | | | PLASMA | | | LABORATORY | | | (LAB) | | | SERVICES, | | | | | | CORE | | + +---------+ + + + | CALCIUM, | 8.4 (L) | 8.6 - 10.2 | [facility] | | | PLASMA | | mg/dL | LABORATORY | | | (LAB) | | | SERVICES, | | | | | | CORE | | + +---------+ + + + | ALBUMIN, | 3.4 (L) | 3.5 - 4.7 g/dL | [facility] | | | PLASMA | | | LABORATORY | | | (LAB) | | | SERVICES, | | | | | | CORE | | + +---------+ + + + | PHOSPHORUS, | 2.1 (L) | 2.4 - 4.7 mg/dL | [facility] | | | PLASMA | | | LABORATORY | | | (LAB) | | | SERVICES, | | | | | | CORE | | + +---------+ + + + | POTASSIUM | No Hemo | | [facility] | | | CMNT | | | LABORATORY | | | | | | SERVICES, | | | | | | CORE | | + +---------+ + + + | ANION GAP | 7 | 4 - 11 mmol/L | [facility] | | | | | | LABORATORY | | | | | | SERVICES, | | | | | | CORE | | + +---------+ + + + | ANION | 8 | 4 - 11 mmol/L | [facility] | | | GAP(ALB | | | LABORATORY | | | CORRECTED) | | | SERVICES, | | | | | | CORE | | + +---------+ + + + + + | Specimen | + + | Blood - Blood | + + + + + + + | Performing | Address | City/State/Zipcode | Phone Number | | Organization | | | | + + + + + | [facility] | [address] | [place] [address] | | | SERVICES, CORE | [address] | | | + + + + + MAGNESIUM, PLASMA (11/03/2012 5:16 AM PST) + +-------+ + + + | Component | Value | Ref Range | Performed | Pathologist | | | | | At | Signature | + +-------+ + + + | MAGNESIUM,P | 1.9 | 1.8 - 2.5 mg/dL | [facility] | | | [facility] | | | LABORATORY | | | | | | ADRI, | | | | | | CORE | | + +-------+ + + + + + | Specimen | + + | Blood - Blood | + + + + + + + | Performing | Address | City/State/Zipcode | Phone Number | | Organization | | | | + + + + + | [facility] | [address] | [place] [address] | | | SERVICES, CORE | [address] | | | + + + + + INR (11/03/2012 5:16 AM PST) + +-------+ + + + | Component | Value | Ref Range | Performed | Pathologist | | | | | At | Signature | + +-------+ + + + | INR | 1.08 | 0.90 - 1.20 INR | [facility] | | | | | | LABORATORY | | | | | | SERVICES, | | | | | | CORE | | + +-------+ + + + + + | Specimen | + + | Blood - Blood | + + + + + | Narrative | Performed At | + + + | INR Therapeutic ranges for full anticoagulation: INR for | [facility] | | Venous Thromboembolism (2.0 - 3.0) INR INR for | LABORATORY | | most patients with mech. valves (2.5 - 3.5) INR | SERVICES, CORE | + + + + + + + + | Performing | Address | City/State/Zipcode | Phone Number | | Organization | | | | + + + + + | [facility] | [address] | [place] [address] | | | SERVICES, CORE | [address] | | | + + + + + CBC (11/03/2012 5:15 AM PST) + + + + + + | Component | Value | Ref Range | Performed | Pathologist | | | | | At | Signature | + + + + + + | WHITE CELL | 7.3 | 4.4 - 11.0 K/cu | [facility] | | | COUNT | | mm | LABORATORY | | | | | | SERVICES, | | | | | | CORE | | + + + + + + | RED CELL | 4.21 (L) | 4.50 - 5.90 | [facility] | | | COUNT | | M/cu mm | LABORATORY | | | | | | SERVICES, | | | | | | CORE | | + + + + + + | HEMOGLOBIN | 13.3 (L) | 13.5 - 17.5 | [facility] | | | | | g/dL | LABORATORY | | | | | | SERVICES, | | | | | | CORE | | + + + + + + | HEMATOCRIT | 39.5 (L) | 41.0 - 53.0 % | [facility] | | | | | | LABORATORY | | | | | | SERVICES, | | | | | | CORE | | + + + + + + | MCV | 93.7 | 80.0 - 96.0 fL | [facility] | | | | | | LABORATORY | | | | | | SERVICES, | | | | | | CORE | | + + + + + + | MCHC | 33.7 | 33.4 - 35.5 | [facility] | | | | | g/dL | LABORATORY | | | | | | SERVICES, | | | | | | CORE | | + + + + + + | RDW | 14.0 | 11.5 - 15.0 % | [facility] | | | | | | LABORATORY | | | | | | SERVICES, | | | | | | CORE | | + + + + + + | PLATELET | 145 (L) | 150 - 400 K/cu | [facility] | | | COUNT | | mm | LABORATORY | | | | | | SERVICES, | | | | | | CORE | | + + + + + + + + | Specimen | + + | Blood - Blood | + + + + + + + | Performing | Address | City/State/Zipcode | Phone Number | | Organization | | | | + + + + + | [facility] | [address] | [place] [address] | | | SERVICES, CORE | [address] | | | + + + + + CAPILLARY BLOOD GLUCOSE (NO CHG), POC (11/03/2012 12:39 AM PST) + +---------+ + + + | Component | Value | Ref Range | Performed | Pathologist | | | | | At | Signature | + +---------+ + + + | BLOOD | 127 (H) | 60 - 99 mg/dL | [facility] - | | | GLUCOSE, | | | [facility] | | | POC | | | [facility] | | | | | | OF CARE | | | | | | TESTS | | + +---------+ + + + + + | Specimen | + + | | + + + + + + + | Performing | Address | City/State/Zipcode | Phone Number | | Organization | | | | + + + + + | [facility] | [address] | [place], [place] | | | [facility] | [address] | [address] | | | TESTS | | | | + + + + + CBC (11/02/2012 12:33 AM PST) + + + + + + | Component | Value | Ref Range | Performed | Pathologist | | | | | At | Signature | + + + + + + | WHITE CELL | 9.6 | 4.4 - 11.0 K/cu | [facility] | | | COUNT | | mm | LABORATORY | | | | | | SERVICES, | | | | | | CORE | | + + + + + + | RED CELL | 4.33 (L) | 4.50 - 5.90 | [facility] | | | COUNT | | M/cu mm | LABORATORY | | | | | | SERVICES, | | | | | | CORE | | + + + + + + | HEMOGLOBIN | 13.7 | 13.5 - 17.5 | [facility] | | | | | g/dL | LABORATORY | | | | | | SERVICES, | | | | | | CORE | | + + + + + + | HEMATOCRIT | 41.0 | 41.0 - 53.0 % | [facility] | | | | | | LABORATORY | | | | | | SERVICES, | | | | | | CORE | | + + + + + + | MCV | 94.7 | 80.0 - 96.0 fL | [facility] | | | | | | LABORATORY | | | | | | SERVICES, | | | | | | CORE | | + + + + + + | MCHC | 33.5 | 33.4 - 35.5 | [facility] | | | | | g/dL | LABORATORY | | | | | | SERVICES, | | | | | | CORE | | + + + + + + | RDW | 14.2 | 11.5 - 15.0 % | [facility] | | | | | | LABORATORY | | | | | | SERVICES, | | | | | | CORE | | + + + + + + | PLATELET | 180 | 150 - 400 K/cu | [facility] | | | COUNT | | mm | LABORATORY | | | | | | SERVICES, | | | | | | CORE | | + + + + + + + + | Specimen | + + | Blood - Blood | + + + + + + + | Performing | Address | City/State/Zipcode | Phone Number | | Organization | | | | + + + + + | [facility] | [address] | [place] [address] | | | SERVICES, CORE | [address] | | | + + + + + MAGNESIUM, PLASMA (11/02/2012 12:33 AM PST) + +-------+ + + + | Component | Value | Ref Range | Performed | Pathologist | | | | | At | Signature | + +-------+ + + + | MAGNESIUM,P | 1.8 | 1.8 - 2.5 mg/dL | [facility] | | | LASMA | | | LABORATORY | | | | | | SERVICES, | | | | | | CORE | | + +-------+ + + + + + | Specimen | + + | Blood - Blood | + + + + + + + | Performing | Address | City/State/Zipcode | Phone Number | | Organization | | | | + + + + + | [facility] | [address] | [place] [address] | | | SERVICES, CORE | [address] | | | + + + + + RENAL FUNCTION SET (NA,K,CL,CO2,BUN,CREAT,GLUC,CA,PHOS,ALB ) (11/02/2012 12:33 AM PST) + + + + + + | Component | Value | Ref Range | Performed | Pathologist | | | | | At | Signature | + + + + + + | GLUCOSE, | 126 (H) | 60 - 99 mg/dL | [facility] | | | PLASMA | | | LABORATORY | | | (LAB) | | | SERVICES, | | | | | | CORE | | + + + + + + | BUN, PLASMA | 5 (L) | 6 - 20 mg/dL | [facility] | | | (LAB) | | | LABORATORY | | | | | | SERVICES, | | | | | | CORE | | + + + + + + | CREATININE | 0.69 (L) | 0.70 - 1.30 | [facility] | | | PLASMA | | mg/dL | LABORATORY | | | (LAB) | | | SERVICES, | | | | | | CORE | | + + + + + + | SODIUM, | 143 | 136 - 145 | [facility] | | | PLASMA | | mmol/L | LABORATORY | | | (LAB) | | | SERVICES, | | | | | | CORE | | + + + + + + | POTASSIUM, | 4.0 | 3.4 - 5.0 | [facility] | | | PLASMA | | mmol/L | LABORATORY | | | (LAB) | | | SERVICES, | | | | | | CORE | | + + + + + + | CHLORIDE, | 110 (H) | 97 - 108 mmol/L | [facility] | | | PLASMA | | | LABORATORY | | | (LAB) | | | SERVICES, | | | | | | CORE | | + + + + + + | TOTAL CO2, | 23 | 21 - 32 mmol/L | [facility] | | | PLASMA | | | LABORATORY | | | (LAB) | | | SERVICES, | | | | | | CORE | | + + + + + + | CALCIUM, | 7.9 (L) | 8.6 - 10.2 | [facility] | | | PLASMA | | mg/dL | LABORATORY | | | (LAB) | | | SERVICES, | | | | | | CORE | | + + + + + + | ALBUMIN, | 3.8 | 3.5 - 4.7 g/dL | [facility] | | | PLASMA | | | LABORATORY | | | (LAB) | | | SERVICES, | | | | | | CORE | | + + + + + + | PHOSPHORUS, | 2.9 | 2.4 - 4.7 mg/dL | [facility] | | | PLASMA | | | LABORATORY | | | (LAB) | | | SERVICES, | | | | | | CORE | | + + + + + + | POTASSIUM | No Hemo | | [facility] | | | CMNT | | | LABORATORY | | | | | | SERVICES, | | | | | | CORE | | + + + + + + | ANION GAP | 10 | 4 - 11 mmol/L | [facility] | | | | | | LABORATORY | | | | | | SERVICES, | | | | | | CORE | | + + + + + + | ANION | 10 | 4 - 11 mmol/L | [facility] | | | GAP(ALB | | | LABORATORY | | | CORRECTED) | | | SERVICES, | | | | | | CORE | | + + + + + + + + | Specimen | + + | Blood - Blood | + + + + + + + | Performing | Address | City/State/Zipcode | Phone Number | | Organization | | | | + + + + + | [facility] | [address] | [place] [address] | | | SERVICES, CORE | [address] | | | + + + + + INR (11/02/2012 12:33 AM PST) + +-------+ + + + | Component | Value | Ref Range | Performed | Pathologist | | | | | At | Signature | + +-------+ + + + | INR | 0.99 | 0.90 - 1.20 INR | [facility] | | | | | | LABORATORY | | | | | | SERVICES, | | | | | | CORE | | + +-------+ + + + + + | Specimen | + + | Blood - Blood | + + + + + | Narrative | Performed At | + + + | INR Therapeutic ranges for full anticoagulation: INR for | [facility] | | Venous Thromboembolism (2.0 - 3.0) INR INR for | LABORATORY | | most patients with mech. valves (2.5 - 3.5) INR | SERVICES, CORE | + + + + + + + + | Performing | Address | City/State/Zipcode | Phone Number | | Organization | | | | + + + + + | [facility] | [address] | [place] [address] | | | SERVICES, CORE | [address] | | | + + + + + PRODUCT - PLATELET PHERESIS LEUKOREDUCED (11/02/2012 12:12 AM PST) + + + + + + | Component | Value | Ref Range | Performed | Pathologist | | | | | At | Signature | + + + + + + | PRODUCT | PLATELETS,PHERESIS,LEUKO | | [facility] | | | DESCRIPTION | CYTES REDUCED | | DEPARTMENT | | | | | | OF | | | | | | PATHOLOGY | | + + + + + + | PRODUCT | [id number] | | [facility] | | | UNIT # | | | DEPARTMENT | | | | | | OF | | | | | | PATHOLOGY | | + + + + + + | UNIT ABO | AB | | [facility] | | | | | | DEPARTMENT | | | | | | OF | | | | | | PATHOLOGY | | + + + + + + | UNIT RH | POS | | [facility] | | | | | | DEPARTMENT | | | | | | OF | | | | | | PATHOLOGY | | + + + + + + | STATUS OF | Returned to Blood Bank | | [facility] | | | UNIT | | | DEPARTMENT | | | | | | OF | | | | | | PATHOLOGY | | + + + + + + | BLOOD | [id number] | | [facility] | | | PRODUCT | | | DEPARTMENT | | | CODE | | | OF | | | | | | PATHOLOGY | | + + + + + + + + | Specimen | + + | | + + + + + + + | Performing | Address | City/State/Zipcode | Phone Number | | Organization | | | | + + + + + | [facility] | [address] | [place] [address] | | | PATHOLOGY | [address] | | | + + + + + CT HEAD WO CONTRAST (11/01/2012 11:57 PM PST) + + + + + + | Component | Value | Ref Range | Performed | Pathologist | | | | | At | Signature | + + + + + + | CT HEAD WO | CT Head WITHOUT: | | | | | CONTRAST | 11/01/12 23:57:00 | | | | | | Comparison studies: | | | | | | Outside CT from the same | | | | | | [facility] | | | | | | history: Trauma | | | | | | TECHNIQUE: Axial CT | | | | | | images of the brain from | | | | | | skull base to | | | | | | vertex,including | | | | | | portions of the face and | | | | | | sinuses, were obtained | | | | | | withoutcontrast. | | | | | | Supplemental 2D | | | | | | reformatted images were | | | | | | generated andreviewed as | | | | | | needed. FINDINGS:Brain: | | | | | | A small amount of | | | | | | extra-axial blood is | | | | | | again noted layeringover | | | | | | the anterior right | | | | | | temporal lobe. | | | | | | Ventricles are normal | | | | | | in sizeand unchanged. | | | | | | There is no shift of | | | | | | midline structures or | | | | | | CTevidence for acute | | | | | | ischemia Soft tissues: | | | | | | There is moderate right | | | | | | periorbital and forehead | | | | | | softtissue swelling and | | | | | | contusion. Several | | | | | | soft tissue lesions | | | | | | withcentral | | | | | | calcification are noted | | | | | | in the right scalp as | | | | | | before andlikely | | | | | | represent epidermal | | | | | | inclusion cysts. | | | | | | Skull/Skull base: There | | | | | | is a nondisplaced | | | | | | fracture through the | | | | | | rightfrontal bone | | | | | | extending from the roof | | | | | | of the right orbit just | | | | | | lateralto the right | | | | | | frontal sinus. Skull | | | | | | base fracture through | | | | | | the rightsphenoid wing | | | | | | involving the right | | | | | | anterior middle cranial | | | | | | fossa isalso again noted | | | | | | with trace intracranial | | | | | | gas posterior to | | | | | | thefracture margins. | | | | | | Face/Orbits: | | | | | | Nondisplaced fracture of | | | | | | the right nasal bone is | | | | | | noted. There is a | | | | | | comminuted mildly | | | | | | medially displaced | | | | | | fracture of theanterior | | | | | | aspect of the right | | | | | | lamina papyracea. In | | | | | | addition, afracture of | | | | | | the posterior superior | | | | | | medial wall of the orbit | | | | | | is notedwith lateral | | | | | | displacement into the | | | | | | extraconal orbit of | | | | | | approximately4 mm. | | | | | | Sinuses: There is | | | | | | opacification of the | | | | | | ethmoid air cells | | | | | | likelyblood in relation | | | | | | to, and fractures | | | | | | described above. Fluid | | | | | | levelwithin the left | | | | | | maxillary sinus is again | | | | | | noted. Mild | | | | | | mucosalthickening is | | | | | | present in the maxillary | | | | | | sinuses. IMPRESSION:1. | | | | | | Unchanged small | | | | | | extra-axial hemorrhage | | | | | | overlying the | | | | | | righttemporal lobe. 2. | | | | | | Nondisplaced right | | | | | | orbital roof and right | | | | | | frontal bone | | | | | | fracture,mildly | | | | | | displaced fracture of | | | | | | the right sphenoid | | | | | | wing/skull baseinvolving | | | | | | the anterior aspect the | | | | | | right middle cranial | | | | | | fossa,nondisplaced right | | | | | | nasal bone fracture, | | | | | | mildly displaced | | | | | | fracture ofthe right | | | | | | lamina papyracea and | | | | | | laterally displaced | | | | | | fracture of theposterior | | | | | | superior medial orbital | | | | | | wall. These fractures | | | | | | areunchanged in | | | | | | appearance from the | | | | | | comparison exam. | | | | | | Attending Radiologists: | | | | | | Deloris Galo, | | | | | | SreeAuthor: CLAIR | | | | | | Sree MARC I have | | | | | | personally viewed this | | | | | | procedure/exam, reviewed | | | | | | this report,and made | | | | | | changes to it where | | | | | | appropriate. | | | | | | Final/Electronically | | | | | | signed / Deloris Dowd | | | | | | Iraj 11/02/201211:44 | | | | | | AM Pending final | | | | | | approval / CLAIR | | | | | | TARI 11/02/2012 | | | | | | 10:40 AM Preliminary / | | | | | | CLAIR MARC | | | | | | 11/02/2012 8:46 AM | | | | + + + + + + + + | Specimen | + + | | + + + +---------+ + + | Performing | Address | City/State/Zipcode | Phone Number | | Organization | | | | + +---------+ + + | [facility] | | | | | [facility]IOLOG[facility] | | | | + +---------+ + + X-RAY PORTABLE CHEST 1 VIEW (11/01/2012 11:48 PM PST) + + + + + + | Component | Value | Ref Range | Performed | Pathologist | | | | | At | Signature | + + + + + + | X-RAY | STUDY: DC CHEST 1 VIEW | | | | | PORTABLE | 11/01/12 23:48:00 | | | | | CHEST 1 | COMPARISON: NONE | | | | | VIEW | HISTORY: Trauma. | | | | | | Transferred from | | | | | | [facility] after | | | | | | thepatient jumped from | | | | | | a 3 foot retaining wall | | | | | | and landed on his | | | | | | head;unconscious for 10 | | | | | | minutes. Multiple | | | | | | facial fractures. | | | | | | FINDINGS: The lung | | | | | | volumes are low. The | | | | | | lungs are clear. There | | | | | | is no | | | | | | focalconsolidation or | | | | | | significant pleural | | | | | | effusion. There is | | | | | | nopneumothorax. Heart | | | | | | is normal in size. | | | | | | Mediastinal contours | | | | | | arewithin normal limits. | | | | | | There is no displaced | | | | | | rib fracture. | | | | | | IMPRESSION: Negative. | | | | | | Attending Radiologists: | | | | | | Michael Decker | | | | | | SreeAuthor: Sandy | | | | | | Sree Pierre I have | | | | | | personally viewed this | | | | | | procedure/exam, reviewed | | | | | | this report,and made | | | | | | changes to it where | | | | | | appropriate. | | | | | | Final/Electronically | | | | | | signed / Michael | | | | | | Brianne 11/02/2012 8:00 | | | | | | AM | | | | + + + + + + + + | Specimen | + + | | + + + +---------+ + + | Performing | Address | City/State/Zipcode | Phone Number | | Organization | | | | + +---------+ + + | [facility] | | | | | [facility]IOLOG[facility] | | | | + +---------+ + + ANTIBODY SCREEN (11/01/2012 11:18 PM PST) + + + + + + | Component | Value | Ref Range | Performed | Pathologist | | | | | At | Signature | + + + + + + | Antibody | Negative | | [facility] | | | Screen | | | LABORATORY | | | | | | SERVICES, | | | | | | TRANSFUSION | | | | | | MEDICINE | | + + + + + + + + | Specimen | + + | Blood - Blood | + + + + + + + | Performing | Address | City/State/Zipcode | Phone Number | | Organization | | | | + + + + + | [facility] | [address] | [place] [address] | | | SERVICES, | [address] | | | | TRANSFUSION MEDICINE | | | | + + + + + ABO & RH TYPE (11/01/2012 11:18 PM PST) + + + + + + | Component | Value | Ref Range | Performed | Pathologist | | | | | At | Signature | + + + + + + | ABO Group | A | | [facility] | | | | | | LABORATORY | | | | | | SERVICES, | | | | | | TRANSFUSION | | | | | | MEDICINE | | + + + + + + | Rh Type | Positive | | [facility] | | | | | | LABORATORY | | | | | | SERVICES, | | | | | | TRANSFUSION | | | | | | MEDICINE | | + + + + + + + + | Specimen | + + | Blood - Blood | + + + + + + + | Performing | Address | City/State/Zipcode | Phone Number | | Organization | | | | + + + + + | [facility] | [address] | [place] [address] | | | SERVICES, | [address] | | | | TRANSFUSION MEDICINE | | | | + + + + + CBC (11/01/2012 11:18 PM PST) + + + + + + | Component | Value | Ref Range | Performed | Pathologist | | | | | At | Signature | + + + + + + | WHITE CELL | 10.5 | 4.4 - 11.0 K/cu | [facility] | | | COUNT | | mm | LABORATORY | | | | | | SERVICES, | | | | | | CORE | | + + + + + + | RED CELL | 4.37 (L) | 4.50 - 5.90 | [facility] | | | COUNT | | M/cu mm | LABORATORY | | | | | | SERVICES, | | | | | | CORE | | + + + + + + | HEMOGLOBIN | 14.0 | 13.5 - 17.5 | [facility] | | | | | g/dL | LABORATORY | | | | | | SERVICES, | | | | | | CORE | | + + + + + + | HEMATOCRIT | 41.0 | 41.0 - 53.0 % | [facility] | | | | | | LABORATORY | | | | | | SERVICES, | | | | | | CORE | | + + + + + + | MCV | 93.9 | 80.0 - 96.0 fL | [facility] | | | | | | LABORATORY | | | | | | SERVICES, | | | | | | CORE | | + + + + + + | MCHC | 34.1 | 33.4 - 35.5 | [facility] | | | | | g/dL | LABORATORY | | | | | | SERVICES, | | | | | | CORE | | + + + + + + | RDW | 14.1 | 11.5 - 15.0 % | [facility] | | | | | | LABORATORY | | | | | | SERVICES, | | | | | | CORE | | + + + + + + | PLATELET | 176 | 150 - 400 K/cu | [facility] | | | COUNT | | mm | LABORATORY | | | | | | SERVICES, | | | | | | CORE | | + + + + + + + + | Specimen | + + | Blood - Blood | + + + + + + + | Performing | Address | City/State/Zipcode | Phone Number | | Organization | | | | + + + + + | [facility] | [address] | [place] [address] | | | SERVICES, CORE | [address] | | | + + + + + COAGULOPATHY PANEL (INR,APTT,FIBRINOGEN) (11/01/2012 11:18 PM PST) + + + + + + | Component | Value | Ref Range | Performed | Pathologist | | | | | At | Signature | + + + + + + | INR | 1.08 | 0.90 - 1.20 INR | [facility] | | | | | | LABORATORY | | | | | | SERVICES, | | | | | | CORE | | + + + + + + | APTT | 25.3 (L) | 26.0 - 36.0 | [facility] | | | | | seconds | LABORATORY | | | | | | SERVICES, | | | | | | CORE | | + + + + + + | FIBRINOGEN | 261 | 200 - 450 mg/dL | [facility] | | | LEVEL | | | LABORATORY | | | | | | SERVICES, | | | | | | CORE | | + + + + + + + + | Specimen | + + | Blood - Blood | + + + + + | Narrative | Performed At | + + + | INR Therapeutic ranges for full anticoagulation: INR for | [facility] | | Venous Thromboembolism (2.0 - 3.0) INR INR for | LABORATORY | | most patients with mech. valves (2.5 - 3.5) INR APTT | SERVICES, CORE | | Therapeutic Range: (75 - 120) sec | | | Heparin levels of 0.35 - 0.7 U/mL | | + + + + + + + + | Performing | Address | City/State/Zipcode | Phone Number | | Organization | | | | + + + + + | [facility] | [address] | [place] [address] | | | SERVICES, CORE | [address] | | | + + + + + ETHANOL (ALCOHOL), BLOOD (11/01/2012 11:18 PM PST) + +---------+ + + + | Component | Value | Ref Range | Performed | Pathologist | | | | | At | Signature | + +---------+ + + + | ETHANOL | 213 (H) | <10 mg/dL | [facility] | | | (ALCOHOL) | | | LABORATORY | | | | | | SERVICES, | | | | | | CORE | | + +---------+ + + + + + | Specimen | + + | Blood - Blood | + + + + + + + | Performing | Address | City/State/Zipcode | Phone Number | | Organization | | | | + + + + + | [facility] | [address] | [place] [address] | | | SERVICES, CORE | [address] | | | + + + + + GLUCOSE, PLASMA (11/01/2012 11:18 PM PST) + +---------+ + + + | Component | Value | Ref Range | Performed | Pathologist | | | | | At | Signature | + +---------+ + + + | GLUCOSE, | 135 (H) | 60 - 99 mg/dL | [facility] | | | PLASMA | | | LABORATORY | | | (LAB) | | | SERVICES, | | | | | | CORE | | + +---------+ + + + + + | Specimen | + + | Blood - Blood | + + + + + + + | Performing | Address | City/State/Zipcode | Phone Number | | Organization | | | | + + + + + | [facility] | [address] | [place] [address] | | | SERVICES, CORE | [address] | | | + + + + + documented in this encounter Visit Diagnoses + + | Diagnosis | + + | Fall - Primary Unspecified fall | + + | Trauma Injury, other and unspecified, unspecified site | + + | SDH (subdural hematoma) ([facility]) Subdural hemorrhage | + + | Multiple facial fractures ([facility]) Other facial bones, closed fracture | + + documented in this encounter Administered Medications + +--------+ +--------+------+------+ | Medication Order | MAR | Action | Dose | Rate | Site | | | Action | Date | | | | + +--------+ +--------+------+------+ | acetaminophen (aka TYLENOL) | Given | 11/03/19 | 650 mg | | | | tablet 325-650 mg 325-650 mg, | | 13 8:59 | | | | | oral, EVERY 4 HOURS NEEDED, | | AM PST | | | | | Starting 11/02/12 at 0000, | | | | | | | Until Cherelle 11/03/12 at 2129, mild | | | | | | | pain | | | | | | + +--------+ +--------+------+------+ +-------+ +--------+---+---+ | Given | 11/02/19 | 650 mg | | | | | 13 6:17 | | | | | | PM PST | | | | +-------+ +--------+---+---+ +---+---+ | | | +---+---+ + +---------+ +-------+-------+---+ | famotidine in NS (aka PEPCID) | New Bag | 11/03/19 | 20 mg | 200 | | | IV 20 mg 20 mg, intravenous, | | 13 8:59 | | mL/hr | | | EVERY 12 HOURS, First dose on Wed | | AM PST | | | | | 11/02/12 at 0015, Until | | | | | | | Discontinued | | | | | | + +---------+ +-------+-------+---+ +---------+ +-------+-------+---+ | New Bag | 11/02/19 | 20 mg | 200 | | | | 13 9:17 | | mL/hr | | | | PM PST | | | | +---------+ +-------+-------+---+ | New Bag | 11/02/19 | 20 mg | 200 | | | | 13 8:31 | | mL/hr | | | | AM PST | | | | +---------+ +-------+-------+---+ +---+---+ | | | +---+---+ + +---------+ +--------+--------+---+ | HYDROmorphone (aka DILAUDID) | New Bag | 11/02/19 | 0.5 mg | mL/hr | | | injection 0.2-0.6 mg 0.2-0.6 mg, | | 13 11:50 | | | | | intravenous, EVERY 2 HOURS | | AM PST | | | | | NEEDED, Starting Wed11/02/12 at | | | | | | | 0000, Until Wed11/02/12 at 1405, | | | | | | | moderate pain | | | | | | + +---------+ +--------+--------+---+ +---------+ +--------+--------+---+ | New Bag | 11/02/19 | 0.5 mg | mL/hr | | | | 13 8:30 | | | | | | AM PST | | | | +---------+ +--------+--------+---+ | New Bag | 11/02/19 | 0.5 mg | mL/hr | | | | 13 12:13 | | | | | | AM PST | | | | +---------+ +--------+--------+---+ + +---+ | | | + +---+ | HYDROmorphone (aka DILAUDID) | | | injection 1 dose, Starting Wed | | | 11/02/12 at 0006, Until Wed | | | 11/02/12 at 0013 | | + +---+ | | | + +---+ + + + +-------+-------+---+ | lactated ringers IV 100 mL/hr, | Rate/Dos | 11/02/19 | 100 | 100 | | | intravenous, CONTINUOUS, | e Change | 13 7:00 | mL/hr | mL/hr | | | Starting Wed11/02/12 at 0030, | | AM PST | | | | | Until Wed11/02/12 at 1405 | | | | | | + + + +-------+-------+---+ +---------+ +-------+-------+---+ | New Bag | 11/02/19 | 100 | 100 | | | | 13 12:14 | mL/hr | mL/hr | | | | AM PST | | | | +---------+ +-------+-------+---+ +---+---+ | | | +---+---+ + +---------+ + +--------+---+ | levETIRAcetam (akcari DORAN) IV | New Bag | 11/03/19 | 1,000 mg | mL/hr | | | 1,000 mg 1,000 mg, intravenous, | | 13 8:59 | | | | | TWICE DAILY, 14 doses, First dose | | AM PST | | | | | (after last modification) on Wed | | | | | | | 11/02/12 at 0900, Last dose on | | | | | | | Tu11/08/12 at 2100 | | | | | | + +---------+ + +--------+---+ +---------+ + +--------+---+ | New Bag | 11/02/19 | 1,000 mg | mL/hr | | | | 13 8:50 | | | | | | PM PST | | | | +---------+ + +--------+---+ | New Bag | 11/02/19 | 1,000 mg | mL/hr | | | | 13 10:37 | | | | | | AM PST | | | | +---------+ + +--------+---+ +---+---+ | | | +---+---+ + +-------+ +------+---+---+ | nicotine polacrilex (aka | Given | 11/03/19 | 2 mg | | | | NICORETTE) gum 2 mg 2 mg, oral, | | 13 12:32 | | | | | NEEDED, Starting 11/02/12 | | PM PST | | | | | at 1901, Until Cherelle 11/03/12 at | | | | | | | 2129, Withdrawal symptoms | | | | | | + +-------+ +------+---+---+ +-------+ +------+---+---+ | Given | 11/03/19 | 2 mg | | | | | 13 6:48 | | | | | | AM PST | | | | +-------+ +------+---+---+ | Given | 11/03/19 | 2 mg | | | | | 13 12:40 | | | | | | AM PST | | | | +-------+ +------+---+---+ +---+---+ | | | +---+---+ + +---------+ +------+--------+---+ | ondansetron (aka ZOFRAN) | New Bag | 11/02/19 | 4 mg | mL/hr | | | injection 4 mg 4 mg, | | 13 4:10 | | | | | intravenous, EVERY 12 HOURS | | AM PST | | | | | NEEDED, Starting Wed11/02/12 at | | | | | | | 0000, Until Wed11/02/12 at 0639, | | | | | | | nausea/vomiting | | | | | | + +---------+ +------+--------+---+ +---+---+ | | | +---+---+ + +---------+ +------+--------+---+ | ondansetron (aka ZOFRAN) | New Bag | 11/02/19 | 4 mg | mL/hr | | | injection 4 mg 4 mg, | | 13 6:19 | | | | | intravenous, EVERY 12 HOURS | | PM PST | | | | | NEEDED, Starting Wed11/02/12 at | | | | | | | 0650, Until Wed11/03/12 at 2128, | | | | | | | nausea/vomiting | | | | | | + +---------+ +------+--------+---+ +---+---+ | | | +---+---+ + +-------+ +-------+---+---+ | oxyCODONE (immediate release) | Given | 11/03/19 | 10 mg | | | | (aka ROXICODONE) tablet 5-15 mg | | 13 12:55 | | | | | 5-15 mg, oral, EVERY 4 HOURS | | PM PST | | | | | NEEDED, Starting Wed11/02/12 at | | | | | | | 1802, Until Wed11/03/12 at 2128, | | | | | | | severe pain | | | | | | + +-------+ +-------+---+---+ +-------+ +-------+---+---+ | Given | 11/03/19 | 10 mg | | | | | 13 8:59 | | | | | | AM PST | | | | +-------+ +-------+---+---+ | Given | 11/03/19 | 10 mg | | | | | 13 3:43 | | | | | | AM PST | | | | +-------+ +-------+---+---+ +---+---+ | | | +---+---+ + +-------+ +------+---+---+ | polyethylene glycol (aka | Given | 11/03/19 | 17 g | | | | MIRALAX) powder 17 g 17 g, oral, | | 13 11:38 | | | | | DAILY, First dose on Wed11/03/12 | | AM PST | | | | | at 1115, Until Discontinued | | | | | | + +-------+ +------+---+---+ +---+---+ | | | +---+---+ + +---------+ +---------+--------+---+ | promethazine (aka PHENERGAN) | New Bag | 11/02/19 | 12.5 mg | mL/hr | | | injection 6.25-12.5 mg 6.25-12.5 | | 13 6:57 | | | | | mg, intravenous, EVERY 6 HOURS | | AM PST | | | | | NEEDED, Starting Wed11/02/12 | | | | | | | at 0639, Until Wed11/02/12 at | | | | | | | 1405, nausea/vomiting, hold for | | | | | | | sedation | | | | | | + +---------+ +---------+--------+---+ +---+---+ | | | +---+---+ + +-------+ + +---+---+ | senna-docusate (aka SENOKOT S) | Given | 11/03/19 | 1 tablet | | | | 8.6-50 mg 1 Tab 1 tablet, oral, | | 13 11:38 | | | | | TWICE DAILY, First dose on Cherelle | | AM PST | | | | | 11/03/12 at 1100, Until | | | | | | | Discontinued | | | | | | + +-------+ + +---+---+ +---+---+ | | | +---+---+ documented in this encounter"
--- OUTSIDE RECORDS SUMMARY | ~2020-08-01 | XMS | Clinical Summary ---
Demographics + + + | Address | [address] | | | [place] [address] | + + + | Home Phone | | + + + | Preferred Language | Unknown | + + + | Marital Status | Single | + + + | Caodaism Affiliation | Unknown | + + + | Race | Unknown | + + + | Ethnic Group | Unknown | + + + Author + + + | Author | [facility] | | | and [place] | + + + | Organization | [facility] | | | and [place] | + + + | Address | Unknown | + + + | Phone | Unavailable | + + + Care Team Providers + +------+ + | Care Fuel Technician Name | Role | Phone | + +------+ + PCP | Unavailable | + +------+ + Allergies + + + + + + | Active Allergy | Reactions | Severity | Noted | Comments | | | | | Date | | + + + + + + | Hydrocodone | | | 04/24/20 | | | | | | 10 | | + + + + + + | Hyoscyamine | | | | | + + + + + + Medications + + + +---------+------+------+-------+ | Medication | Sig | Dispensed | Refills | Star | End | Statu | | | | | | t | Date | s | | | | | | Date | | | + + + +---------+------+------+-------+ | dicyclomine | Take 20 mg by mouth | | 0 | 09/1 | | Activ | | (BENTYL) 20 MG | 4 times daily as | | | 4/20 | | e | | tablet | needed. | | | 12 | | | + + + +---------+------+------+-------+ Active Problems + + + | Problem | Noted Date | + + + | IRRITABLE BOWEL SYNDROME | | + + + | GASTRITIS | | + + + Social History + +-------+ [...] on file | | + + + Last Filed Vital Signs + + + + + | Vital Sign | Reading | Time Taken | Comments | + + + + + | Blood Pressure | 140/100 | 04/24/2010 12:00 AM | | | | | PDT | | + + + + + | Pulse | - | - | | + + + + + | Temperature | - | - | | + + + + + | Respiratory Rate | - | - | | + + + + + | Oxygen Saturation | - | - | | + + + + + | Inhaled Oxygen | - | - | | | Concentration | | | | + + + + + | Weight | 91.2 kg (201 lb) | 04/24/2010 12:00 AM | | | | | PDT | | + + + + + | Height | 180.3 cm (5' 11") | 04/24/2010 12:00 AM | | | | | PDT | | + + + + + | Body Mass Index | 28.03 | 04/24/2010 12:00 AM | | | | | PDT | | + + + + + Plan of Treatment + + +-------+ + | Health Maintenance | Due Date | Last | Comments | | | | Done | | + + +-------+ + | Vaccine: | | | | | Dtap/Tdap/Td (1 - | 9 | | | | Tdap) | | | | + + +-------+ + | Vaccine: Influenza | | | | | (#1) | 0 | | | + + +-------+ + Results Not on filefrom Last 3 Months
--- OUTSIDE RECORDS SUMMARY | ~2020-08-01 | XMS | Encounter Summary ---
Demographics + + + | Address | [address] | | | [place] [address] | + + + | Home Phone | | + + + | Preferred Language | Unknown | + + + | Marital Status | Single | + + + | Buddhist Affiliation | Unknown | + + + | Race | Unknown | + + + | Ethnic Group | Unknown | + + + Author + + + | Author | [facility] | | | and [place] | + + + | Organization | [facility] | | | and [place] | + + + | Address | Unknown | + + + | Phone | Unavailable | + + + Care Team Providers + +------+ + | Care Crusher Loader Equipment Operator Name | Role | Phone | + +------+ + PCP | Unavailable | + +------+ + Encounter Details +--------+ + + + + | Date | Type | Department | Care Team | Description | +--------+ + + + + | 06/30/ | Abstract | [facility] | | | 2011 | | Conversion Location | [address] | | | | | [address] | | | | | | [place], [place] | | | | | | [address] | | | | | | [phone] | | | +--------+ + + + [...] + + + documented in this encounter Plan of Treatment Not on filedocumented as of this encounter Visit Diagnoses Not on filedocumented in this encounter
--- OUTSIDE RECORDS SUMMARY | ~2020-08-01 | XMS | Clinical Summary ---
Demographics + + + | Address | [address] | | | [place] [address] | + + + | Home Phone | | + + + | Preferred Language | Unknown | + + + | Marital Status | | + + + | Anglican Affiliation | ADV | + + + | Race | White | + + + | Ethnic Group | Not or | + + + Author + + + | Author | [facility] | + + + | Organization | [facility] | + + + | Address | Unknown | + + + | Phone | Unavailable | + + + Support + + + + + | Name | Relationship | Address | Phone | + + + + + | Jigna Gutierrez | ECON | [address] | | | | | [place] | | | | | [address] | | + + + + + | Karmen Gutierrez | ECON | [address] | | | | | [place] | | | | | [address] | | + + + + + Care Team Providers + +------+ + | Care Pulp Operator Name | Role | Phone | + +------+ + | Juanito Edge MD | PCP | | + +------+ + Source Comments [facility] is fully live on both EpicCare Ambulatory and EpicCare InPatient.[facility] Allergies + + + + + + | Active Allergy | Reactions | Severity | Noted | Comments | | | | | Date | | + + + + + + | Hydrocodone-Acetamin | Pruritus | Medium | 11/02/19 | | | ophen | | | 13 | | + + + + + + | Nicotine | Rash | Low | 11/02/19 | Pt states that | | | | | 13 | when he wears | | | | | | Nicotine patches he | | | | | | breaks out in a | | | | | | rash. Pt does, | | | | | | however, tolerate | | | | | | nicotine gum. Could | | | | | | be reaction to | | | | | | patch adhesive. | + + + + + + Medications + + + +---------+------+------+-------+ | Medication | Sig | Dispensed | Refills | Star | End | Statu | | | | | | t | Date | s | | | | | | Date | | | + + + +---------+------+------+-------+ | acetaminophen 325 | Take 1-2 Tabs by | | 0 | 01/1 | | Activ | | mg Oral | mouth every four | | | 7/20 | | e | | tabletIndications: | hours as needed. | | | 13 | | | | pain | Indications: Pain | | | | | | + + + +---------+------+------+-------+ | | Apply 1 Packet to | | 0 | 01/1 | | Activ | | bacitracin-polymyxin | affected area as | | | 7 | | e | | B 500-10,000 unit/g | needed (Nurse | | | 13 | | | | Topical Packet | Initiated Order - | | | | | | | | affected skin areas | | | | | | | | with superficial | | | | | | | | lacerations/abrasion | | | | | | | | s). | | | | | | + + + +---------+------+------+-------+ | bisacodyl 10 mg | Insert 1 Suppository | 10 | 0 | 01/1 | | Activ | | Rectal Suppository | rectally twice | Supposito | | 7/20 | | e | | | daily as needed for | ry | | 13 | | | | | constipation (No BM | | | | | | | | in past 3 days). | | | | | | + + + +---------+------+------+-------+ | polyethylene | Take 17 g by mouth | 119 g | 1 | 10/18 | | Activ | | glycol 17 gram/dose | once daily. | | | 05/06 | | e | | Oral Powder | | | | 13 | | | + + + +---------+------+------+-------+ | oxyCODONE, | Take 1-3 Tabs by | 80 Tab | 0 | 10/18 | | Activ | | immediate release, 5 | mouth every six | | | 05/06 | | e | | mg Oral tablet | hours as needed for | | | 13 | | | | | severe pain. | | | | | | + + + +---------+------+------+-------+ Active Problems + + + | Problem | Noted Date | + + + | Multiple facial fractures | 11/03/2012 | + + + + + | Overview: non-displaced posterior table frontal sinus fx, | | Right Supraorbital rim/wall fractures, and R nasal bone fracture. | | Non op, no f/u needed per OMFS. | + + + + + | Fall | 11/01/2012 | + + + | SDH (subdural hematoma) | 11/01/2012 | + + + + + | Overview: Small R SDH, stable, non-op - Keppra for 7 days. | + + Social History + + + [...] | | + + +-------+ + | Pneumococcal | | | | | vaccination (1 | 6 | | | | - PPSV23) | | | | + + +-------+ + | Influenza (Flu) | | | | | vaccination (#1) | 0 | | | + + +-------+ + Results Not on filefrom Last 3 Months Advance Directives + + + + + | Code Status | Date | Date | Comments | | | Activated | Inactivated | | + + + + + | Full Code | 11/02/2012 | 11/03/2012 | | | | 12:06 AM | 9:29 PM | | + + + + +"
[2020-08-01] MEDS ORDERED: LOSARTAN POTAS100 MG PO (08:54)
[2020-08-01] MEDS ORDERED: PREDNISONE20 MG PO (09:55)
== END 2020-08-01 11:00 | disposition home or self-care (01) ==
LOC: ED 08:40
DX: S39.012A Strain of muscle, fascia and tendon of lower back, initial encounter (principal); F17.200 Nicotine dependence, unspecified, uncomplicated; X58.XXXA Exposure to other specified factors, initial encounter; Y99.0 Civilian activity done for income or pay; Z79.899 Other long term (current) drug therapy
CPT/HCPCS: 72100; 99283-25; J7512

== ENCOUNTER 2021-12-29 10:05 | Emergency (ER) | payer OTHER ==
[~2021-12-29] VITALS: Ht 177.8 cm; Wt 79.4 kg
[~2021-12-29 10:05] MED LIST: LOSARTAN POTAS100 MG PO; PREDNISONE20 MG PO
[2021-12-29] MEDS ORDERED: HYDROCHLOROTH12.5 MG PO (10:18)
== END 2021-12-29 12:15 | disposition home or self-care (01) ==
LOC: ED 10:05
DX: I95.9 Hypotension, unspecified (principal); I10 Essential (primary) hypertension; F17.200 Nicotine dependence, unspecified, uncomplicated; Z20.822 Contact with and (suspected) exposure to COVID-19
CPT/HCPCS: 36415; 80053; 84484; 85025; 99284